=== PATIENT | male | born 1935 | race Caucasian/White ===

== ENCOUNTER → 2017-03-07 | Outpatient (CLI) | payer MEDICARE, OTHER ==
[~2017-03-07] MED LIST: ALPRAZOLAM PO; AMBIEN10 MG PO; AMITRIPTYLINE H25 MG PO; ASPIRIN81 M1 PO; ASPIRIN81 M2 PO; AVALIDE 150-12.1 TAB PO; AVALIDE 150-121 EACH PO; FLOMAX0.4 M1 PO; HYDROCODON-ACE1 EAC1 PO; HYDROCODONE-APA1 T61 PO; HYDROCODONE/APA1 T16 PO; KLONOPIN PO; LORTAB 7.5-3251 EACH PO; LOVAZA1 G PO; METHADOSE5 MG PO; NASONEX17 GM; NEXIUM PO; PHENERGAN25 MG PO; PRAVASTATIN SOD40 MG PO; PROTONIX PO; RANEXA500 MG PO; STOOL SOFTENER50 MG PO; TOPROL XL PO
--- NOTE | ~2017-03-07 | CR173 ---
[facility] A Service of [facility] RADIOLOGY TEXT RESULTS PATIENT: GABRIEL WILLINGHAM LOCATION: [facility] : 36 UNIT #: [id number] AGE: [address]: Claudio Fishman MD SEX: M ORDER DR: [id number] [address] [address] [id number] O MR#: [id number] Acc #: [id number] NAME: GABRIEL WILLINGHAM : 1935 SEX: M STUDY DATE/TIME: 03/07/2017 10:46 UNIT: [facility] ROOM: STUDY DESCRIPTION: CR Knee 3 Views Rt Attending Physician: Claudio Fishman M.D. Referring Physician: Claudio Fishman M.D. Ordering Physician: Claudio Fishman M.D. MEDICAL IMAGING REPORT This report is preliminary unless electronic signature is present EXAM Right knee 03/07/2017 INDICATIONS Preop evaluation total knee replacement on the right. Symptoms began today. TECHNIQUE 3 views of the right knee were performed. COMPARISON STUDIES 12/18/2015. FINDINGS No acute fracture. Moderately severe tricompartmental degenerative change, most severe in the medial and patellofemoral compartments. Equivocal small joint effusion. Incidental fabella and atherosclerotic disease. The bones are osteopenic. IMPRESSION 1. Tricompartmental degenerative changes, most severe in the medial compartment. No acute fracture. Dictated by... Aaron De Paz M.D. THIS IS AN ELECTRONICALLY VERIFIED REPORT Aaron De Paz M.D. at 03/08/2017 9:17 AM JLY/pcl [facility] A Service of [facility] RADIOLOGY TEXT RESULTS PATIENT: GABRIEL WILLINGHAM LOCATION: [facility] : 36 UNIT #: [id number] AGE: [address]: Claudio Fishman MD SEX: M ORDER DR: TD: 03/07/2017 23:29 JOB #: [id number] MEDICAL IMAGING REPORT Page 1 of 1 COPY
--- NOTE | ~2017-03-07 | EKG ---
PATIENT: GABRIEL WILLINGHAM UNIT #: [id number] Ventricular Rate: 64 BPM Atrial Rate: 64 BPM P-R Interval: 168 ms QRS Duration: 146 ms Q-T Interval: 448 ms QTC Calculation(Bezet): 462 ms P Mitchell: 10 degrees Calculated R Mitchell: -20 degrees Calculated T Mitchell: 56 degrees Diagnosis Line: Normal sinus rhythm Diagnosis Line: Left bundle branch block Diagnosis Line: Abnormal ECG Diagnosis Line: When compared with ECG of 20-APR-2016 09:38, Diagnosis Line: Left bundle branch block is now Present Diagnosis Line: Diagnosis Line: Confirmed by CHRISTOPHER WHITFIELD MD ([id number]) on Diagnosis Line: 03/08/2017 10:53:42 AM INTERPRETING YOGI CABELLO
--- NOTE | ~2017-03-07 | CR63 ---
[facility] A Service [facility] RADIOLOGY TEXT RESULTS PATIENT: GABRIEL WILLINHGAM LOCATION: [facility] : 36 UNIT #: [id number] AGE: [address]: Claudio Fishman MD SEX: M ORDER DR: [id number] [place], [place] [address] [id number] O MR#: [id number] Acc #: [id number] NAME: GABRIEL WILLINGHAM : 1935 SEX: M STUDY DATE/TIME: 03/07/2017 10:45 UNIT: [facility] ROOM: STUDY DESCRIPTION: CR Chest 2 View Attending Physician: Claudio Fishman M.D. Referring Physician: Claudio Fishman M.D. Ordering Physician: Claudio Fishman M.D. MEDICAL IMAGING REPORT This report is preliminary unless electronic signature is present EXAM Two views chest HISTORY Preoperative examination. Total right knee arthroplasty today. TECHNIQUE PA and lateral radiographs chest presented. COMPARISON STUDIES 02/11/2014. FINDINGS Degenerative changes in the spine. Mild anterior wedging of 2 mid-thoracic vertebral bodies, probably the T8 and T9 vertebral bodies. No clear indication of acute bony abnormality. The heart is mildly enlarged. Lungs moderately well inflated. No acute pulmonary disease, pleural effusion or pneumothorax. No suspicious nodule. Densely calcified granuloma at the left lung base. Dictated by... Reuben Narayanan M.D. THIS IS AN ELECTRONICALLY VERIFIED REPORT Reuben Narayanan M.D. at 03/08/2017 12:11 PM TERENCE/willa TD: 03/07/2017 17:11 JOB #: [id number] MEDICAL IMAGING REPORT [facility] A Service [facility] RADIOLOGY TEXT RESULTS PATIENT: GABRIEL WILLINGHAM LOCATION: [facility] : 36 UNIT #: [id number] AGE: [address]: Claudio Fishman MD SEX: M ORDER DR: Page 1 of 1 COPY
[2017-03-07 09:53] LABS: HEMATOCRIT 37.4 % (38.0-50.0); MEAN CELL VOLUME 81.7 FL (83-96); MEAN CORPUSCULAR HEMOGLOBIN 26.3 PG (28-34); MEAN CORPUSCULAR HGB CONC 32.2 g/dL (30-36); MEAN PLATELET VOLUME 7.5 FL (6.5-11.5); RED BLOOD COUNT 4.58 X10e (3.90-5.60); RED CELL DISTRIBUTION WIDTH 16.3 % (11.0-15.5); WHITE BLOOD COUNT 4.6 X10e3 (4.0-10.5)
[2017-03-07 10:11] LABS: PROTHROMBIN TIME (PATIENT) 11.3 SECONDS (10.0-11.7)
[2017-03-07 10:21] LABS: BUN/CREATININE RATIO 27.14; CALCIUM SERUM 9.2 mg/dL (8.4-10.2); CREATININE SERUM 0.7 mg/dL (0.6-1.4); GLOM FILT RATE Estimated 89.2 mL/min (>60); POTASSIUM 4.2 mmol/L (3.5-5.1)
[2017-03-07 10:48] LABS: URINE APPEARANCE CLEAR; URINE BILIRUBIN NEG (NEG); URINE BLOOD NEG (NEG); URINE COLOR YELLOW; URINE GLUCOSE NEG (NEG); URINE KETONE NEG (NEG); URINE LEUKOCYTE ESTERASE NEG (NEG); URINE NITRATE NEG (NEG); URINE PROTEIN NEG (NEG); URINE SPECIFIC GRAVITY 1.017 (1.003-1.035); URINE UROBILINOGEN 0.2 MG/DL (NEG)
[2017-03-07 10:57] LABS: CULTURE INDICATED? NO; URINE SOURCE CLEAN CATCH
== END | disposition home or self-care (01) ==
LOC: CAMB 08:54
PROVIDERS: Orthopaedic Surgery
DX: Z01.818 Encounter for other preprocedural examination (principal); M17.11 Unilateral primary osteoarthritis, right knee
CPT/HCPCS: 36415; 71020; 73562; 80048; 81003; 85027; 85610; 86850; 86900; 86901; 87070; 93005

== ENCOUNTER 2017-03-16 05:31 | Inpatient (IN) | payer MEDICARE, OTHER ==
--- NOTE | ~2017-03-16 | DS ---
Unit #: [id number] #: [id number] Patient: GABRIEL WILLINGHAM [id number] [address] [address] [id number] I MR#: [id number] NAME: GABRIEL WILLINGHAM. ROOM: 472 Age: 81 Sex: M Admission Date: 03/16/2017 : 1935 Discharge Date: 03/18/2017 Attending Physician: Claudio Fishman M.D. Primary Care Physician: Generic Doctor Not In System DISCHARGE SUMMARY DISCHARGE DIAGNOSIS Right knee osteoarthritis, status post total knee arthroplasty. DISCHARGE MEDICATIONS The patient will be restarted on all of his home medications in addition to: 1. Percocet 7.5/325 mg, one to two tablets p.o. q.4 hours p.r.n. pain. 2. 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 3. He will remain on all the remainder of his medications. DETAILS OF HOSPITAL STAY The patient was admitted after a right total knee arthroplasty. It was uneventful. The patient did well with therapy. Labs and vitals signs were stable. On postoperative day two, it was felt he was stable for discharge to [facility]. DISPOSITION [facility]. DISCHARGE INSTRUCTIONS 1. The patient will continue physical therapy, be weight bearing as tolerated with range of motion as tolerated. 2. He will ice and elevate the right knee. 3. The dressing will remain on the right knee until follow up unless there is saturation. 4. He can shower and get the dressing wet. 5. He will be on Lovenox for two weeks for DVT prophylaxis. 6. He will follow up in the office in two weeks. Dictated by... Esau Alonso/steph TD: 03/18/2017 12:25 JOB #: [id number] Unit #: [id number] #: [id number] Patient: GABRIEL WILLINGHAM DISCHARGE SUMMARY Page 1 of 1 X X DISCHARGE SUMMARY
--- NOTE | ~2017-03-16 | OR ---
Unit #: [id number] #: [id number] Patient: GABRIEL WILLINGHAM [id number] [address] [place], [place] [address] [id number] I MR#: [id number] NAME: GABRIEL WILLINGHAM. ROOM: 472 Date of Procedure: 03/16/2017 Admission Date: 03/16/2017 Surgeon: Claudio Fishman M.D. : 1935 Attending Physician: Claudio Fishman M.D. Primary Care Physician: Generic Doctor Not In System OPERATIVE REPORT PREOPERATIVE DIAGNOSIS Right knee osteoarthritis. POSTOPERATIVE DIAGNOSIS Right knee osteoarthritis. PROCEDURE PERFORMED Right total knee arthroplasty. [place] [employer] LAW CLERK Reuben Wallace CFA. ANESTHESIA General with LMA. COMPLICATIONS None. SPECIMENS None. DRAINS None. SURGICAL IMPLANTS Maryellen Persona PS knee arthroplasty system. A size 7 PS femur, size F tibial tray, size 10 mm polyethylene insert, size 35 mm patellar polyethylene button, Palacos R+G cement. INDICATIONS FOR PROCEDURE Mr. Willingham is an 81-year-old gentleman with persistent right knee pain secondary to osteoarthritis. The patient had failed conservative treatment including pain management, injections, therapy, and anti-inflammatories. The patient wished to proceed with total knee arthroplasty due to failure of conservative management. This was felt to be reasonable based on his imaging. Risks, benefits, and alternatives were discussed with the patient. Risks include, but not limited to, infection, bleeding, nerve injury, blood clots, risks associated with anesthesia, need for further surgery, persistent pain, and possibly . DESCRIPTION OF PROCEDURE On 03/16/2017, the patient was seen in the preoperative holding area, Unit #: [id number] #: [id number] Patient: GABRIEL WILLINGHAM where his surgical site was marked. Preoperative antibiotics were received. H and P and consent updated. Preoperative block performed. The patient was taken to the operating room and provided general anesthesia. Right lower extremity was prepped and draped in typical sterile fashion. Time-out was performed confirming the correct surgical site and procedure. At this point, leg was exsanguinated and tourniquet inflated to 250 mmHg. Prior scar noted over the anteromedial aspect of the knee. Longitudinal incision extended proximally and distally off the curved incision around the patella. Incision was taken down through the skin and subcutaneous tissues. A medial patellar arthrotomy was performed. The knee was extended. Fat pad excised. Medial soft tissues were elevated. The knee was then flexed up. Femoral starting reamer was placed up the canal. The sword was placed up the canal set at +1 mm. Distal femoral cut was made. Anterior referencing guide placed. Size 7 noted. 3 degree external rotation. The 4:1 cutting jig was placed. Cuts were made appropriately in standard fashion. No notching noted. Focus was now placed on the tibia. Tibial guide placed. 4 and 6 stylus was used with 4 mm off the medial side. Careful attention to varus valgus, height, and tilt noted. Retractors were placed and the tibial cut was made. Sizer blocks were placed and noted to be appropriate. Menisci removed. PCL released. Periarticular joint injection placed all around the knee. The tibial tray placed. This was sized up. It fit well. Careful attention to rotation noted. It was referenced off the medial third of the tibial tubercle. The femoral component was placed. Two lug holes drilled. Box cut was made. A 10 mm spacer was placed. The knee was flexed and extended. It was noted to be a little bit tight in both flexion and extension. It was felt that two more millimeters taken off the tibia would improve this. All instruments were removed. Two more millimeters taken off the tibial cut. Tray placed again. A canal reamer and punch were used. Drop antonio confirmed appropriate alignment. At this point, wound was thoroughly irrigated. The bone surfaces were suctioned, dried, and cleaned off. On the back table, the Palacos R+G cement was mixed. This was placed on the under surface of the tibial tray. The tibia was placed. Excess cement was removed. In similar fashion, the femur was placed. A 10 mm insert was placed with the leg placed in extension. Patellar button placed. Excess cement removed. The remainder of 3 L normal saline containing bacitracin pulsed through the wound. After about 30 minutes, cement was hardened. The knee was flexed back up. The 10 mm polyethylene insert was noted to be appropriate for full motion and stability. Patella tracked midline. At this point, the trial poly was removed. Excess cement was removed from the back of the knee. Irrigation used as well. Final polyethylene insert was placed. It was stable. Knee tracked nicely. Tourniquet was released. Hemostasis was achieved. Arthrotomy was closed with #1 Vicryl suture followed by 2-0 Vicryl for subcutaneous tissues and a 3-0 Monocryl subcuticular skin stitch. Dermabond, Telfa, and Tegaderm were placed. The patient was subsequently awakened from general anesthesia in stable condition and taken to PACU postoperatively. POSTOPERATIVE PLAN The patient will be admitted. He will be on Lovenox for DVT prophylaxis. He will have SCDs. He will be on standard 24-hour antibiotic protocol. He will likely need inpatient rehab. No complications were encountered during the surgical procedure. Dictated by... Unit #: [id number] #: [id number] Patient: GABRIEL WILLINGHAM M.D. BD/brie TD: 03/16/2017 10:30 JOB #: [id number] OPERATIVE REPORT Page 1 of 1 X X PROCEDURE OPERATIVE NOTE
--- NOTE | ~2017-03-16 | CR170 ---
[facility] A Service of [facility] RADIOLOGY TEXT RESULTS PATIENT: GABRIEL WILLINGHAM LOCATION: [place] [address] : 36 UNIT #: [id number] AGE: [address]: Claudio Fishman MD SEX: M ORDER DR: [id number] [facility] [address] [facility] [address]. [place], [place] [address] [id number] I MR#: [id number] Acc #: [id number] NAME: GABRIEL WILLINGHAM. : 1935 SEX: M STUDY DATE/TIME: 03/16/2017 10:16 UNIT: [facility] ROOM: [facility] STUDY DESCRIPTION: CR Knee 2 Views Rt Attending Physician: Claudio Fishman M.D. Ordering Physician: Claudio Fishman M.D. Primary Care Physician: Generic Doctor Not In System MEDICAL IMAGING REPORT This report is preliminary unless electronic signature is present EXAM Right knee HISTORY Status post right total knee arthroplasty today. COMPARISON 03/07/2017 FINDINGS 2 views of the right knee demonstrates postoperative changes of right total knee arthroplasty with femoral and tibial components in expected position and alignment. Mild varus angulation at the knee joint. Soft tissue swelling and soft tissue gas noted particularly in the anterior knee consistent with recent operative intervention. There is a small amount of intraarticular gas. Arterial vascular calcifications noted. IMPRESSION Status post right total knee arthroplasty with a moderate amount of soft tissue swelling and soft tissue gas noted within the anterior knee related to recent operative intervention. Mild varus angulation of the knee. Dictated by... David Avendaño M.D. THIS IS AN ELECTRONICALLY VERIFIED REPORT David Avendaño M.D. at 03/17/2017 7:26 AM STEPH/jl TD: 03/16/2017 11:55 JOB #: [id number] [facility] A Service of [facility] RADIOLOGY TEXT RESULTS PATIENT: GABRIEL WILLINGHAM LOCATION: [place] [address] : 36 UNIT #: [id number] AGE: [address]: Claudio Fishman MD SEX: M ORDER DR: MEDICAL IMAGING REPORT Page 1 of 1 COPY
[~2017-03-16 05:31] MED LIST changes: -LORTAB 7.5-3251 EACH PO
[2017-03-16 07:13] LABS: INR 1.1
[2017-03-17 02:36] LABS: HEMATOCRIT 31.2 % (38.0-50.0); HEMOGLOBIN 10.1 gm/dL (13.0-16.0); MEAN CELL VOLUME 82.9 FL (83-96); MEAN CORPUSCULAR HEMOGLOBIN 26.8 PG (28-34); MEAN CORPUSCULAR HGB CONC 32.3 g/dL (30-36); MEAN PLATELET VOLUME 7.3 FL (6.5-11.5); RED BLOOD COUNT 3.76 X10e (3.90-5.60); RED CELL DISTRIBUTION WIDTH 16.1 % (11.0-15.5); WHITE BLOOD COUNT 8.7 X10e3 (4.0-10.5)
[2017-03-17 02:56] LABS: BUN/CREATININE RATIO 22.72; CALCIUM SERUM 8.3 mg/dL (8.4-10.2); CREATININE SERUM 1.1 mg/dL (0.6-1.4); GLOM FILT RATE Estimated 63.1 mL/min (>60); POTASSIUM 4.4 mmol/L (3.5-5.1)
[2017-03-18 03:40] LABS: HEMATOCRIT 36.4 % (38.0-50.0); HEMOGLOBIN 11.9 gm/dL (13.0-16.0); MEAN CELL VOLUME 83.5 FL (83-96); MEAN CORPUSCULAR HEMOGLOBIN 27.3 PG (28-34); MEAN CORPUSCULAR HGB CONC 32.7 g/dL (30-36); MEAN PLATELET VOLUME 8.1 FL (6.5-11.5); RED BLOOD COUNT 4.36 X10e (3.90-5.60); RED CELL DISTRIBUTION WIDTH 16.4 % (11.0-15.5); WHITE BLOOD COUNT 11.7 X10e3 (4.0-10.5)
[2017-03-18 09:19] LABS: CALCIUM SERUM 8.5 mg/dL (8.4-10.2); CREATININE SERUM 0.9 mg/dL (0.6-1.4); GLOM FILT RATE Estimated 80.4 mL/min (>60); POTASSIUM 4.5 mmol/L (3.5-5.1)
== END 2017-03-18 18:00 | DRG 470 ==
LOC: CSUR 05:31 → CPACUOF 09:30 → CSUR 10:02 → CPACUOF 11:00 → C4C 11:00
PROVIDERS: Orthopaedic Surgery
PROC: 0SRC0J9 Replacement of Right Knee Joint with Synthetic Substitute, Cemented, Open Approach (ICD-10-PCS; principal; 2017-03-16 07:30)
DX: M17.11 Unilateral primary osteoarthritis, right knee (principal); I10 Essential (primary) hypertension; E78.5 Hyperlipidemia, unspecified; I25.2 Old myocardial infarction; I25.10 Atherosclerotic heart disease of native coronary artery without angina pectoris; Z90.49 Acquired absence of other specified parts of digestive tract; Z88.8 Allergy status to other drugs, medicaments and biological substances
CPT/HCPCS: 73560; 80048; 85027; 85610; 94010; 94760; 94761; 97110; 97116; 97162; 97530; C1776; G8978-GP; G8979-GP; J0131; J0171; J0690; J0735; J1170; J1650; J1885; J2250; J2310; J2405; J2710; J2795; J3010

== ENCOUNTER 2017-03-31 17:14 | Observation (INO) | payer MEDICARE, OTHER ==
[~2017-03-31] VITALS: Ht 177.8 cm; Wt 87.0 kg
--- NOTE | ~2017-03-31 | HP ---
Unit #: [id number] #: [id number] Patient: GABRIEL WILLINGHAM [id number] [facility] [address] [facility]. [place], [place] [address] [id number] I MR#: [id number] NAME: GABRIEL WILLINGHAM. ROOM: 561 Age: 81 Sex: M Admission Date: 03/31/2017 : 1935 Attending Physician: Sania Carvajal M.D. HISTORY AND PHYSICAL CHIEF COMPLAINT Confusion and fever. DISCUSSION This is an 81-year-old gentleman who has history of osteoarthritis, hypertension, pulmonary hypertension, dyslipidemia, degenerative disk disease, chronic pain, insomnia, coronary artery disease, qbvuusop-ix-aodhrd aortic stenosis, benign prostatic hypertrophy, anxiety, GERD, history of back and neck surgery and allergic rhinitis. He was recently admitted here at [facility] on March 16. He had a right total knee arthroplasty. Postoperatively he did very well. He was discharged home. Today he said around 9:30 he had an appointment with his orthopedist, Dr. Fishman. He left the house and then said he does not remember what happened. The next thing he remembers is some police officers talking to him in the van, and they brought him to [facility]. He was found to be confused. He had a maximum temperature of 104, and then he was stabilized there. Eventually, once his fever improved, he came alert, oriented x3 without any complaint, and then in view of his recent right total knee arthroplasty, he was transferred here. The case was discussed with orthopedic surgeon, Dr. Holguin, and he has been transferred here under [facility] service. At this time he denies any chest pain. He does not remember what happened. He said he just left the house to go to the doctor's office, and then the next thing he remembers is being in the car, confused and fever. He denied chest pain, nausea, vomiting, fever, chills or cough prior to that. Denies any other complaints. At this time he is alert, oriented x3 without any complaint. PAST MEDICAL HISTORY 1. History of hypertension. 2. Pulmonary hypertension. 3. Hyperlipidemia. 4. Osteoarthritis. 5. Degenerative disk disease. 6. Chronic pain syndrome, follows with chronic pain management, on methadone. 7. History of insomnia. 8. Coronary artery disease/wlbwgypw-og-rkqsio aortic stenosis. 9. History of benign prostatic hypertrophy. 10. Anxiety. 11. Gastroesophageal reflux disease. Unit #: [id number] #: [id number] Patient: GABRIEL WILLINGHAM 12. History of back and neck surgery status post epidural injection. 13. History of neuropathy of bilateral feet. 14. Allergic rhinitis. 15. Post colonoscopy arrhythmia. 16. History of obstructive sleep apnea, for which he does not use continuous positive airway pressure. 17. History of possible thoracic aortic aneurysm. PAST SURGICAL HISTORY 1. Lumbar fusion with instrumentation x3. 2. Cholecystectomy. 3. Laparoscopic esophagus, wrapped and open esophageal surgery. 4. Colonoscopy 3 years ago. Polyps reported as benign. 5. Cardiac catheterization in the past. 6. Recent right total knee arthroplasty on 03/16/17. ALLERGIES Levofloxacin. MEDICATIONS FROM HOME 1. Methadone 5 mg daily. 2. Toprol XL 50 mg in the morning. 3. Pravastatin 40 mg daily. 4. Aspirin 81 mg daily. 5. Avalide 150/12.5 one tablet daily. 6. Klonopin 0.5 mg b.i.d. 7. Amitriptyline 50 mg at bedtime. 8. Ambien 10 mg at bedtime. 9. Flomax 0.4 mg daily. 10. Hydrocodone 7.5/325 mg 1 tablet q.6 hours p.r.n. SOCIAL HISTORY The patient used to smoke. He has an 80 pack-year history of tobacco abuse but quit in 1990. Denies alcohol. Denies illicit drug use. FAMILY HISTORY Mother had unknown cancer. Father - coronary artery disease. Brother with coronary artery disease, history of CABG and diabetes. REVIEW OF SYSTEMS All review of systems is negative except as in history of present illness. PHYSICAL EXAMINATION VITALS: His vitals at [facility] were temperature maximum of 104, heart rate 96, blood pressure 131/57, respiratory rate 19. His repeat temperature right now is 98.9. GENERAL: He is alert, awake, oriented x3. Comfortable. Not in any distress. HEENT: Head is atraumatic, normocephalic. Sclerae are anicteric. NECK: Neck is supple. No JVD. LUNGS: Lungs are clear to auscultation. No rhonchi. No wheezing. HEART: S1, S2. Regular rate and rhythm. ABDOMEN: Abdomen is soft, nontender, nondistended. Bowel sounds are positive. EXTREMITIES: Inspection is normal. No cyanosis. No clubbing. No edema. NEUROLOGIC: Cranial nerves II-XII intact. Power 5/5 on both sides. Alert and oriented x3. PSYCHIATRIC: Normal mood and affect. Unit #: [id number] #: [id number] Patient: GABRIEL WILLINGHAM SKIN: Warm and dry. DIAGNOSTIC STUDIES LABORATORY WORKUP: I do not have details but what I got from [facility]. He had lab work there - Sodium 137, potassium 4.6, chloride 98, CO2 28, glucose 162, BUN 35, creatinine 1.1, albumin 4.3, AST 26, ALT 26. CK 65. UA was negative. Troponin 0.03. White count is 10, hemoglobin 10, hematocrit 37, platelets 269. IMAGING: CT head - I do not have official report. It was done in [facility]. Was told negative. ASSESSMENT AND PLAN 1. Febrile illness. Questionable heat stroke. Will monitor. 2. Status post right total knee arthroplasty on 03/16/2017. Right knee site - Little fluctuation but otherwise the surrounding site looks okay. Will ask ortho, Dr. Holguin, to reevaluate. Eventually, will start on clindamycin. Pharmacy to dose. 3. History of coronary artery disease. 4. Snixruyr-bt-dhxkop aortic stenosis. 5. History of hypertension. 6. History of anxiety. 7. Gastroesophageal reflux disease. 8. Dyslipidemia. 9. Benign prostatic hypertrophy. 10. Deep vein thrombosis prophylaxis. Will place the patient on Lovenox. Dictated by Eloisa Pettit M.D. MIKHAIL/cody TD: 04/01/2017 09:08 JOB #: [id number] HISTORY AND PHYSICAL Page 1 of 1 X X HISTORY AND PHYSICAL
--- NOTE | ~2017-03-31 | DS ---
Unit #: [id number] #: [id number] Patient: GABRIEL WILLINGHAM [id number] [place], [place] [address] [id number] I MR#: [id number] NAME: GABRIEL WILLINGHAM. ROOM: [facility] Age: 81 Sex: M Admission Date: 03/31/2017 : 1935 Discharge Date: 04/01/2017 Attending Physician: Sania Carvajal M.D. DISCHARGE SUMMARY SHORT STAY SUMMARY HOSPITAL COURSE This 81-year-old male was admitted to the hospital with fever. Details are as per admission H and P. The patient's fever has resolved. His last temperature is 97.7. He was seen by Dr. Tsai in consultation who stated that the patient's right knee looks good and there is no infection. The patient's lab work revealed creatinine of 0.6. His white blood cell was normal at 9, hemoglobin 9.3, platelet count 237. Therefore, we will discharge the patient home with followup on an outpatient basis. DISCHARGE MEDICATIONS The patient was advised to continue his home medications. The medications are as per medication reconciliation form and admission H and P. FOLLOWUP/RECOMMENDATIONS 1. The patient is advised to follow up with primary care physician in 3-4 days and with orthopedics as recommended. 2. The patient is advised to call primary care physician or go to ER if his condition changes. DIAGNOSTIC STUDIES The patient had a chest x-ray done and urinalysis done in the emergency room, which was negative as per preliminary report. Dictated by... Esau Waddell/cody TD: 04/01/2017 11:19 JOB #: [id number] Unit #: [id number] #: [id number] Patient: GABRIEL WILLINGHAM DISCHARGE SUMMARY Page 1 of 1 X Gypsy Hilton MD X DISCHARGE SUMMARY
[2017-04-01 06:21] LABS: BASOPHIL# 0.1 X10e3 (0-0.3); BASOPHIL% 0.6 % (0-2.5); EOSINOPHIL# 0.2 X10e3 (0-0.7); EOSINOPHIL% 1.8 % (0.0-7.0); HEMATOCRIT 28.5 % (38.0-50.0); HEMOGLOBIN 9.3 gm/dL (13.0-16.0); LYMPHOCYTE# 1.4 X10e3 (1.0-3.5); LYMPHOCYTE% 15.5 % (17.0-45.0); MEAN CELL VOLUME 82.8 FL (83-96); MEAN CORPUSCULAR HEMOGLOBIN 27.1 PG (28-34); MEAN CORPUSCULAR HGB CONC 32.7 g/dL (30-36); MEAN PLATELET VOLUME 6.9 FL (6.5-11.5); MONOCYTE# 0.5 X10e3 (0-1.0); MONOCYTE% 5.7 % (3.0-12.0); NEUTROPHIL# 6.9 X10e3 (1.5-7.1); NEUTROPHIL% 76.4 % (40-75); PLATELET COUNT 237 X10e3 (140-420); RED BLOOD COUNT 3.44 X10e (3.90-5.60); RED CELL DISTRIBUTION WIDTH 15.3 % (11.0-15.5)
[2017-04-01 06:27] LABS: DIFF IND NO
[2017-04-01 07:24] LABS: BUN/CREATININE RATIO 33.33; CALCIUM SERUM 8.5 mg/dL (8.4-10.2); CREATININE SERUM 0.6 mg/dL (0.6-1.4); POTASSIUM 3.8 mmol/L (3.5-5.1)
[2017-04-01] MEDS ORDERED: LORTAB 7.5-3251 EACH PO (09:26)
== END 2017-04-01 12:00 | disposition home or self-care (01) ==
LOC: C5B 20:14 → UNDOADMOB 20:14 → C5B 20:14
PROVIDERS: Internal Medicine
DX: R50.9 Fever, unspecified (principal); E78.5 Hyperlipidemia, unspecified; M19.90 Unspecified osteoarthritis, unspecified site; G89.4 Chronic pain syndrome; I25.10 Atherosclerotic heart disease of native coronary artery without angina pectoris; I10 Essential (primary) hypertension; F41.9 Anxiety disorder, unspecified; I35.0 Nonrheumatic aortic (valve) stenosis; N40.0 Benign prostatic hyperplasia without lower urinary tract symptoms; Z98.1 Arthrodesis status; Z88.1 Allergy status to other antibiotic agents; Z96.651 Presence of right artificial knee joint
CPT/HCPCS: 80048; 83605; 85025; 85652; 86140; 87040; 96374; 96375; G0378; J1650; J3370